=== PATIENT | female | born 1960 | race Caucasian/White ===

== ENCOUNTER 2017-08-20 18:11 | Observation (INO) | payer BC ==
[2017-08-20] MEDS ORDERED: Acetaminophen TAB* 325 MG PO ONE (20:14)
[2017-08-20 20:24] LABS: Hematocrit 36 % (35-47); Hemoglobin 11.9 g/dl (12.0-16.0); Mean Corpuscular HGB Conc 33 g/dl (31-36); Mean Corpuscular Hemoglobin 28 pg (27-31); Mean Corpuscular Volume 86 fL (80-97); Mean Platelet Volume 8 um3 (7.4-10.4); Red Blood Count 4.21 10^6/ul (4.0-5.4); Red Cell Distribution Width 14 % (10.5-15); White Blood Count 14.9 10^3/ul (3.5-10.8)
[2017-08-20 20:40] LABS: Albumin 3.9 g/dL (3.2-5.2); BUN/Creatinine Ratio 12.5 (8-20); Calcium 9.2 mg/dL (8.6-10.3); EGFR Non-African American 83.2 (>60); Globulin 3.2 g/dL (2-4); Potassium 4.2 mmol/L (3.5-5.0); Total Bilirubin 0.3 mg/dL (0.2-1.0); Total Protein 7.1 g/dL (6.4-8.9)
[2017-08-20 20:42] LABS: Troponin I 0.03 ng/mL (<0.04)
--- NOTE | 2017-08-20 20:59 | RAD ---
Indication: Headache, hypertension. Comparison: No relevant prior exams available on the [facility] for comparison. Technique: Noncontrast CT vertex of skull through foramen magnum. Report: The sulci, ventricles, and basal cisterns are normal for age. White matter white matter differentiation is preserved without evidence for edema. No intra or extra axial hemorrhage, mass, or fluid collection detected. Unremarkable visualized orbital contents. Unremarkable calvarium and skull base. Unremarkable scalp. The visualized paranasal sinuses and mastoid air spaces are clear. IMPRESSION: Negative unenhanced head CT.
[2017-08-20] MEDS ORDERED: Morphine INJ* 4 MG/ML 1 ML CARPUJECT IV ONE (21:05)
[2017-08-20 21:14] LABS: T4 8.75 mcg/mL (6.09-12.23)
[2017-08-20 21:18] LABS: TSH (Thyroid Stimulating Horm) 0.87 mcIU/mL (0.34-5.60)
[2017-08-20 21:19] LABS: Urine Bacteria Absent (Absent); Urine Bilirubin Negative (Negative); Urine Glucose Negative (Negative); Urine Nitrite Negative (Negative)
[2017-08-20] MEDS ORDERED: oxyCODONE TAB* 5 MG TAB PO PRN (22:31)
[2017-08-21] MEDS: oxyCODONE SR TAB(*) 15 MG TAB.SR PO SCH ×3 (00:32→13:04)
--- NOTE | 2017-08-21 01:56 | HP ---
CC: JERALD Tolbert * HISTORY AND PHYSICAL: DATE OF ADMISSION: 08/20/17 PRIMARY CARE PROVIDER: JERALD Tolbert CHIEF COMPLAINT: Chest pain. HISTORY OF PRESENT ILLNESS: Ms. Douglass is a 56-year-old female who has a history of chronic pain, fibromyalgia, and tobacco abuse who presented to the emergency room at [facility] with complaints of chest pain. The patient states that she was cleaning her carpet this morning and went to use the vacuum when she felt both arms to be very heavy. She then developed a heaviness across her upper chest. She states that it intensified over a couple of minutes, then went away when she stopped being active. The patient had no associated shortness of breath, nausea, or diaphoresis. The patient does state that she had an episode similar to his over the summer; however, without the chest pain, but did not seek attention at that time. In addition to the complaints of chest pain, she also complains of headache. She states that she used to get headaches like this; however, not recently. PAST MEDICAL HISTORY: 1. Fibromyalgia. 2. GERD. PAST SURGICAL HISTORY: 1. x3. 2. Hysterectomy. 3. Removal of retained stitches. MEDICATIONS: 1. Premarin 0.625 mg p.o. daily. 2. OxyContin 15 mg p.o. t.i.d. 3. Aspirin 325 mg p.o. daily. 4. Zegerid one cap p.o. daily p.r.n. GERD. ALLERGIES: IBUPROFEN and SUMATRIPTAN. FAMILY HISTORY: Mom is living. She is 80. She has a pacemaker. She is unaware of any other medical conditions. Dad is and his health history is unknown. SOCIAL HISTORY: The patient has been a smoker since the age of 11 or 12, smoking approximately 1 pack per day. She does not drink alcohol. She worked as a homemaker and as a skin specialist. She is . She has 3 children. She indicates her , Rosalio, is her healthcare proxy. REVIEW OF SYSTEMS: A complete 11-system review of systems is obtained. Pertinent positives and negatives are as per HPI and otherwise negative. PHYSICAL EXAMINATION GENERAL: The patient is a well-developed middle-aged female, lying in the stretcher, in no acute distress. VITAL SIGNS: Blood pressure 96/79, pulse 83, respirations 19, temp 98.8, O2 sat 95% on room air. HEENT: Pupils are equal. They are round. Extraocular muscles are intact. Oropharynx is clear. Oral mucosa is moist. There is no submandibular, cervical , or supraclavicular adenopathy. Thyroid is not enlarged. No thyroid nodules are noted. PULMONARY: Lungs are clear to auscultation bilaterally. CARDIAC: Normal S1, S2. Regular rate and rhythm. I do not appreciate any murmurs. There is no lower extremity edema. ABDOMEN: Bowel sounds present. Abdomen is soft, nontender, nondistended. MUSCULOSKELETAL: There is no cyanosis or clubbing of the digits. There is full active range of motion of all 4 extremities. NEUROLOGIC: Cranial nerves II through XII are grossly intact. Sensation is intact to light touch throughout. Strength is 5/5 and symmetric in both upper and lower extremities bilaterally. SKIN: Warm and dry. There are no rashes. PSYCH: The patient is alert. She is oriented x3. Affect appears appropriate. LABORATORY DATA: WBC 14.9, hemoglobin 11.9, hematocrit 36, platelets 433,000. INR 0.90. Sodium 137, potassium 4.2, chloride 106, CO2 24, BUN 9, creatinine 0.72, glucose 111, lactic acid 2.0, calcium 9.2, magnesium 2.0. Bilirubin 0.3, AST 13, ALT 11, alk phos 102. CPK is 66. CK-MB 2.7. Troponin 0.03. Albumin 3.9. TSH 0.87. Urinalysis reveals clear urine with a specific gravity of 1.009, 1+ blood, and hyaline casts. EKG reveals normal sinus rhythm with Q-waves in the inferior leads. No acute ST -T wave abnormalities are noted. CT brain, negative. Unenhanced CT head. ASSESSMENT AND PLAN: Ms. Douglass is a 56-year-old female who has a history of tobacco abuse and presents to the emergency room with complaints of chest pain and while at [facility] was found to have markedly elevated blood pressure with systolic greater than 200 and a slightly elevated troponin of 0.04 at [facility]. 1. Chest pain. I am concerned that this could represent cardiac chest pain. The patient was active at the time of the onset of chest pain. She believes that she had a stress test sometime in the distant past; however, she is not completely clear on this. The plan will be to admit the patient under observation status for one more troponin followed by an exercise nuclear stress test tomorrow. 2. Hypertension. The patient states her blood pressure has fluctuated quite a bit over the last several readings. She does note at home, her blood pressure was high in the 180s at the time of her episode of chest pain. Her blood pressure will be monitored and if she appears to have hypertension, she should be initiated on therapy. She states that her primary has been going back and forth on whether or not to start a medication at this point. Currently, the patient's blood pressure is soft at 96/79; however, she did just receive some morphine for her headache. 3. Headache. The patient believes this is related to stress and nerves because of the chest pain. For now, we will continue p.r.n. Tylenol and her standing OxyContin. I will add p.r.n. oxycodone as well. 4. Gastroesophageal reflux disease. I will continue omeprazole. 5. DVT prophylaxis. According to the Adult Thrombosis Prophylaxis Risk Factor Assessment Guide, the patient has a total risk factor score of 2 making her moderate risk. Ambulation will be utilized as DVT prophylaxis. 7. Code status is full and again, the patient indicates that her is her healthcare proxy. TIME SPENT: 65 minutes were spent admitting this patient. [id number] #: [id number] MTDD
--- NOTE | 2017-08-21 03:46 | ED ---
Jaymie Soler Alfonso, scribed for Lissette Cervantes MD on 08/20/17 at 1959 . HPI Chest Pain - HPI Summary HPI Summary: This patient is a 56 year old F BIBA from [facility] to [facility] accompanied by 5 family members with a chief complaint of diffuse aching CP worse since 1100 today. Pt had an elevated troponin 0.04 at [facility] so was transferred for further eval. She had similar symptoms a few months ago and just blew it off. The CP is currently resolved and she is feeling good. The patient rates the pain 9/10 in severity. Symptoms aggravated by nothing. Symptoms alleviated by treatment MILLER DISTILLERY. Patient given Lopressor, Nitro, ASA, and 5 mg Morphine x2 by EMS MILLER DISTILLERY. Patient reports bilateral UE weakness, headache (9/ 10 pain severity), and anxiety. Patient denies abdominal pain, N/V, calf pain, calf swelling, SOB, and changes in vision. - History of Current Complaint Chief Complaint: EDChestPainROMI Time Seen by Provider: 08/20/17 19:47 Hx Obtained From: Patient, Medical Records Onset/Duration: Started Hours Ago, Atraumatic, Resolved, Worse Since - 1100 today Timing: Constant Initial Severity: Moderate Current Severity: Severe Pain Intensity: 9 Pain Scale Used: 0-10 Numeric Chest Pain Location: Diffuse Chest Pain Radiates: Yes Chest Pain Radiates To:: Arm Character: Dull/Aching Aggravating Factor(s): Nothing Alleviating Factor(s): EMS Tx Associated Signs and Symptoms: Positive: Chest Pain, Anxiety, Headaches, Other: - bilateral UE weakness, headache (9/10 pain severity), and anxiety. Patient denies abdominal pain, N/V, calf pain, calf swelling, SOB, and changes in vision.. Negative: Vision Changes, Shortness of Breath, Nausea, Calf Pain/ Swelling, Vomiting - Risk Factors Pulmonary Embolism Risk Factors: Smoking TAD Risk Factors: Smoking - Allergy/Home Medications Allergies/Adverse Reactions: Allergies Allergy/AdvReac Type Severity Reaction Status Date / Time Ibuprofen [From Motrin] Allergy Swelling Verified 08/20/17 18:21 Of Face,Lips,& Throat Sumatriptan [From Imitrex] Allergy Tachycardia Verified 08/20/17 18:21 Home Medications: Home Medications Aspirin 325 MG TAB* 325 mg PO DAILY 08/20/17 [History Confirmed 08/20/17] Oxycontin 15 mg PO TID 08/20/17 [History Confirmed 08/20/17] Premarin TAB* 0.625 mg PO DAILY 08/20/17 [History Confirmed 08/20/17] Zegerid 20-1100 mg 20 mg PO QAM 08/20/17 [History Confirmed 08/21/17] PMH/Surg Hx/FS Hx/Imm Hx Previously Healthy: No GI History: Reports: Hx Gastroesophageal Reflux Disease Musculoskeletal History: Reports: Hx Fibromyalgia Opthamlomology History: Denies: Hx Legally Blind EENT History: Denies: Hx Deafness - Surgical History Surgery Procedure, Year, and Place: hysterectomy, Infectious Disease History: No Infectious Disease History: Denies: Traveled Outside the [place] in Last 30 Days - Family History Known Family History: Positive: Cardiac Disease - Mother - Social History Lives: With Family Alcohol Use: None Hx Substance Use: No Substance Use Type: Reports: None Hx Tobacco Use: Yes Smoking Status (MU): Heavy Every Day Tobacco Smoker Review of Systems Negative: Fever Positive: Other - Negative changes in vision. Positive: Chest Pain Negative: Shortness Of Breath Negative: Abdominal Pain, Vomiting, Nausea Positive: Other - Negative calf pain and calf swelling Positive: Headache, Weakness - bilateral UE Positive: Anxious All Other Systems Reviewed And Are Negative: Yes Physical Exam Triage Information Reviewed: Yes Vital Signs On Initial Exam: Initial Vitals Temp Pulse Resp BP Pulse Ox 98.8 F 79 17 164/131 96 08/20/17 18:19 08/20/17 18:19 08/20/17 18:19 08/20/17 18:19 08/20/17 18:19 Vital Signs Reviewed: Yes Appearance: Positive: Well-Appearing, Well-Nourished, Pain Distress Skin: Positive: Warm, Skin Color Reflects Adequate Perfusion Head/Face: Positive: Normal Head/Face Inspection Eyes: Positive: Conjunctiva Clear ENT: Positive: Normal ENT inspection Neck: Positive: Supple, Nontender, No Lymphadenopathy Respiratory/Lung Sounds: Positive: Clear to Auscultation, Breath Sounds Present , Other - no respiratory distress Cardiovascular: Positive: RRR, Pulses are Symmetrical in both Upper and Lower Extremities, Other - Brisk capillary refill. Negative: Murmur, Leg Edema Left, Leg Edema Right Abdomen Description: Positive: Nontender, No Organomegaly, Soft. Negative: Distended, Guarding, Peritoneal Signs, Pulsatile Mass Bowel Sounds: Positive: Present Musculoskeletal: Positive: Strength/ROM Intact, Other - Negative calf tenderness.. Negative: Edema Left, Edema Right Neurological: Positive: Sensory/Motor Intact - 5/5, Alert, Oriented to Person Place, Time, CN Intact II-III - II-XII, Facial Symmetry, Speech Normal Psychiatric: Positive: Normal - Jesse Coma Scale Best Eye Response: 4 - Spontaneous Best Motor Response: 6 - Obeys Commands Best Verbal Response: 5 - Oriented Coma Scale Total: 15 Diagnostics - Vital Signs Vital Signs Temp Pulse Resp BP Pulse Ox 08/20/17 19:00 76 16 128/95 96 08/20/17 18:30 76 20 153/66 96 08/20/17 18:24 80 18 94 08/20/17 18:21 164/131 08/20/17 18:19 98.8 F 79 17 164/131 96 - Laboratory Lab Results: Lab Results 08/20/17 08/20/17 08/20/17 Range/Units 20:17 20:17 20:17 WBC 14.9 H (3.5-10.8) 10^3/ul RBC 4.21 (4.0-5.4) 10^6/ul Hgb 11.9 L (12.0-16.0) g/dl Hct 36 (35-47) % MCV 86 (80-97) fL MCH 28 (27-31) pg MCHC 33 (31-36) g/dl RDW 14 (10.5-15) % Plt Count 433 (150-450) 10^3/ul MPV 8 (7.4-10.4) um3 Neut % (Auto) 68.6 (38-83) % Lymph % (Auto) 24.0 L (25-47) % Furnas % (Auto) 5.4 (1-9) % Eos % (Auto) 0.7 (0-6) % Baso % (Auto) 1.3 (0-2) % Absolute Neuts (auto) 10.2 H (1.5-7.7) 10^3/ul Absolute Lymphs (auto) 3.6 (1.0-4.8) 10^3/ul Absolute Monos (auto) 0.8 (0-0.8) 10^3/ul Absolute Eos (auto) 0.1 (0-0.6) 10^3/ul Absolute Basos (auto) 0.2 (0-0.2) 10^3/ul Absolute Nucleated RBC 0.01 10^3/ul Nucleated RBC % 0 INR (Anticoag Therapy) 0.90 (0.89-1.11) APTT 24.5 L (26.0-36.3) seconds Sodium 137 (133-145) mmol/L Potassium 4.2 (3.5-5.0) mmol/L Chloride 106 (101-111) mmol/L Carbon Dioxide 24 (22-32) mmol/L Anion Gap 7 (2-11) mmol/L BUN 9 (6-24) mg/dL Creatinine 0.72 (0.51-0.95) mg/dL Est GFR ( Amer) 107.0 (>60) Est GFR (Non-Af Amer) 83.2 (>60) BUN/Creatinine Ratio 12.5 (8-20) Glucose 111 H (70-100) mg/dL Lactic Acid (0.5-2.0) mmol/L Calcium 9.2 (8.6-10.3) mg/dL Magnesium 2.0 (1.9-2.7) mg/dL Total Bilirubin 0.30 (0.2-1.0) mg/dL AST 13 (13-39) U/L ALT 11 (7-52) U/L Alkaline Phosphatase 102 (34-104) U/L Total Creatine Kinase 66 (10-223) U/L CK-MB (CK-2) 2.7 (0.6-6.3) ng/mL Troponin I 0.03 (<0.04) ng/mL Total Protein 7.1 (6.4-8.9) g/dL Albumin 3.9 (3.2-5.2) g/dL Globulin 3.2 (2-4) g/dL Albumin/Globulin Ratio 1.2 (1-3) TSH 0.87 (0.34-5.60) mcIU/mL Thyroxine (T4) 8.75 (6.09-12.23) mcg/mL Urine Color Urine Appearance Urine pH (5-9) Ur Specific Dowling (1.010-1.030) Urine Protein (Negative) Urine Ketones (Negative) Urine Blood (Negative) Urine Nitrate (Negative) Urine Bilirubin (Negative) Urine Urobilinogen (Negative) Ur Leukocyte Esterase (Negative) Urine WBC (Auto) (Absent) Urine RBC (Auto) (Absent) Ur Squamous Epith Cells (Absent) Urine Bacteria (Absent) Hyaline Casts (Absent) Urine Glucose (Negative) 08/20/17 08/20/17 Range/Units 20:17 21:00 WBC (3.5-10.8) 10^3/ul RBC (4.0-5.4) 10^6/ul Hgb (12.0-16.0) g/dl Hct (35-47) % MCV (80-97) fL MCH (27-31) pg MCHC (31-36) g/dl RDW (10.5-15) % Plt Count (150-450) 10^3/ul MPV (7.4-10.4) um3 Neut % (Auto) (38-83) % Lymph % (Auto) (25-47) % Furnas % (Auto) (1-9) % Eos % (Auto) (0-6) % Baso % (Auto) (0-2) % Absolute Neuts (auto) (1.5-7.7) 10^3/ul Absolute Lymphs (auto) (1.0-4.8) 10^3/ul Absolute Monos (auto) (0-0.8) 10^3/ul Absolute Eos (auto) (0-0.6) 10^3/ul Absolute Basos (auto) (0-0.2) 10^3/ul Absolute Nucleated RBC 10^3/ul Nucleated RBC % INR (Anticoag Therapy) (0.89-1.11) APTT (26.0-36.3) seconds Sodium (133-145) mmol/L Potassium (3.5-5.0) mmol/L Chloride (101-111) mmol/L Carbon Dioxide (22-32) mmol/L Anion Gap (2-11) mmol/L BUN (6-24) mg/dL Creatinine (0.51-0.95) mg/dL Est GFR ( Amer) (>60) Est GFR (Non-Af Amer) (>60) BUN/Creatinine Ratio (8-20) Glucose (70-100) mg/dL Lactic Acid 2.0 (0.5-2.0) mmol/L Calcium (8.6-10.3) mg/dL Magnesium (1.9-2.7) mg/dL Total Bilirubin (0.2-1.0) mg/dL AST (13-39) U/L ALT (7-52) U/L Alkaline Phosphatase (34-104) U/L Total Creatine Kinase (10-223) U/L CK-MB (CK-2) (0.6-6.3) ng/mL Troponin I (<0.04) ng/mL Total Protein (6.4-8.9) g/dL Albumin (3.2-5.2) g/dL Globulin (2-4) g/dL Albumin/Globulin Ratio (1-3) TSH (0.34-5.60) mcIU/mL Thyroxine (T4) (6.09-12.23) mcg/mL Urine Color Yellow Urine Appearance Clear Urine pH 6.0 (5-9) Ur Specific Dowling 1.009 L (1.010-1.030) Urine Protein Negative (Negative) Urine Ketones Negative (Negative) Urine Blood 1+ H (Negative) Urine Nitrate Negative (Negative) Urine Bilirubin Negative (Negative) Urine Urobilinogen Negative (Negative) Ur Leukocyte Esterase Negative (Negative) Urine WBC (Auto) Trace(0-5/hpf) (Absent) Urine RBC (Auto) Trace(0-2/hpf) (Absent) Ur Squamous Epith Cells Present H (Absent) Urine Bacteria Absent (Absent) Hyaline Casts Present H (Absent) Urine Glucose Negative (Negative) Result Diagrams: 08/20/17 20:17 08/20/17 20:17 Lab Statement: Any lab studies that have been ordered have been reviewed, and results considered in the medical decision making process. - CT Brain CT Interpretation Completed By: Radiologist - Negative unenhanced head CT. ED physician has reviewed this radiology report and agrees. - EKG 2056 Cardiac Rate: NL EKG Rhythm: Sinus Rhythm - BPM 77 ST Segment: Non-Specific EKG Interpretation: Nml AV/IV conduction time, QTC, & axis. 1 PVC. Q wave in II , III, and AVF. EKG Comparison: No Significant Change - to 1600 EKG from [facility] Re-Evaluation - Re-Evaluation First Eval Re-Evaluation Time: 21:01 Change: Unchanged Comment: Reviewed lab results and plan for admission. She and her family understand and agree. Her headache still persists after Tylenol at this time. Will order morphine. Chest Pain Course/Dx - Course Assessment/Plan: This patient is a 56 year old F BIBA from [facility] to [facility] accompanied by 5 family members with a chief complaint of diffuse aching CP worse since 1100 today. She had similar symptoms a few months ago and just blew it off. The CP is currently resolved and she is feeling good. The patient rates the pain 9/10 in severity. Symptoms aggravated by nothing. Symptoms alleviated by treatment MILLER DISTILLERY. Patient given Lopressor, Nitro, ASA, and 5 mg Morphine x2 by EMS MILLER DISTILLERY. Patient reports bilateral UE weakness, headache (9/ 10 pain severity), and anxiety. Patient denies abdominal pain, N/V, calf pain, calf swelling, SOB, and changes in vision. An EKG reveals Sinus Rhythm at 77 BPM. Nml AV/IV conduction time, QTC, & axis. 1 PVC. Q wave in II, III, and AVF. Nonspecific ST and T wave changes. No changes compared to [address] [facility] Brain reveals, per radiologist, Negative unenhanced head CT. ED physician has reviewed this radiology report and agrees. Patients medications reviewed this visit. In the ED course the patient was given Tylenol and Morphine. Chest Xray was done at [facility], was unremarkable, and was not repeated. Report from [facility] reviewed and MD agrees with report. Consulted Dr. Douglass (hospitalist) who agrees to admit. Patient will be admitted with follow up from Dr. Douglass. The patient and family are agreeable with this plan. - Chest Pain Differential Diagnosis/HQI/PQRI: Acute SD, ACS, Angina, GI Disease - Diagnoses Provider Diagnoses: Chest pain, Cephalgia - Provider Notifications Discussed Care Of Patient With: Regla Douglass Time Discussed With Above Provider: 20:03 Instructed by Provider To: Admit As Observation - Consulted Dr. Douglass ( hospitalist) who agrees to admit. - Critical Care Time Critical Care Time: 30-74 min Discharge - Discharge Plan Condition: Stable Disposition: ADMITTED TO [facility] documentation as recorded by the Jaymie johnson Alfonso accurately reflects the service I personally performed and the decisions made by Billy garcia Barbara J, MD.
[2017-08-21] MEDS ORDERED: Omeprazole CAP* 20 MG PO SCH (06:00)
[2017-08-21] MEDS ORDERED: Aspirin TAB* 325 MG PO SCH (09:00)
[2017-08-21 12:04] VITALS: BP 183/80
--- NOTE | 2017-08-21 12:41 | RAD ---
INDICATION: Chest pain COMPARISON: None TECHNIQUE: A single day SPECT protocol was utilized. Rest images were acquired following the intravenous injection of 10.98 millicuries of technetium 99m tetrofosmin. Exercise stress images were acquired following the intravenous administration of 25.4 millicuries of technetium 99m tetrofosmin. CT attenuation correction could not be obtained due to claustrophobia. The patient was exercised to a peak heart rate of 140 which is 86% of age predicted maximum of age predicted maximum. FINDINGS: There are no defects of the stress-induced or fixed nature. The cardiac chamber size is normal. There are no wall motion abnormalities. The ejection fraction is calculated at 75 percent during stress. IMPRESSION: NEGATIVE EXAMINATION. ASSESSMENT: LOW-RISK Based on imaging criteria from ACC/AHA 2002 Guideline Update for the Management of Patients With Chronic Stable Angina Table 23. Noninvasive Risk Stratification.
--- NOTE | 2017-08-22 05:41 | DS ---
CC: Davey Zhu PA-C * DISCHARGE SUMMARY: DATE OF ADMISSION: 08/20/17 DATE OF DISCHARGE: 08/21/17 PRIMARY CARE PROVIDER: Davey Zhu PA-C DISCHARGE DIAGNOSIS: Chest pain with low probability cardiac stress test, documented on 08/21/17. SECONDARY DIAGNOSES: 1. History of hysterectomy. 2. History of fibromyalgia. 3. History of gastroesophageal reflux disease. MEDICATIONS AT DISCHARGE: Unchanged from admission and those include: 1. Premarin 0.625 mg daily. 2. OxyContin 15 mg 3 times a day. 3. Aspirin 325 mg daily. 4. Zegerid one cap daily p.r.n. GERD. LABORATORY DATA AND STUDIES PERFORMED DURING THE HOSPITAL STAY: Included troponin throughout the patient's hospital stay was unremarkable at 0.03. Subsequently, the patient's cardiac stress test showed no defects of stress induced or fixed nature. Negative evaluation with low risk. The EF was noted to be 75% during stress. PHYSICAL EXAMINATION AT THE TIME OF DISCHARGE: Blood pressure of 158/65, heart rate of 79 and regular, respiratory rate 18, oxygen saturation 94% on room air, temperature 97.8. General: This is a very pleasant 56-year-old female, who is in no acute distress. Alert, awake, and oriented x3. HEENT: Head atraumatic, normocephalic. Eyes: Pupils equal, round, and reactive to light and accommodation. Oropharynx clear. Mucosa moist. Neck: Supple. No JVD. No bruits bilaterally. Cardiovascular: Regular rate and rhythm. No murmur. Respiratory: Clear to auscultation bilaterally. Abdomen: Soft, nontender. Bowel sounds are present in all 4 quadrants. Extremities: There is no edema. Pulses +2 bilaterally. There is no clubbing or cyanosis. Neuro Evaluation: Speech clear. Cranial nerves II through XII grossly intact. Motor strength is 5 /5 bilaterally. DISCHARGE INSTRUCTIONS: At discharge, the patient was recommended to follow up with her primary care provider in approximately 5 to 7 days. At discharge, the patient is recommended strongly not to smoke and counseling was provided to the patient for approximately 5 minutes at discharge. Please note that this is a short summary of the patient's hospital stay. Please refer to further medical records for details. [id number]/[facility] #: [id number] [facility]
== END 2017-08-21 15:15 | disposition home or self-care (01) ==
LOC: ED 18:11 → MEDTELE 22:27
PROVIDERS: ADMIT Hospitalist; ATTEND Internal Medicine
DX: R07.9 Chest pain, unspecified (principal); I10 Essential (primary) hypertension; R51 Headache; M79.7 Fibromyalgia; K21.9 Gastro-esophageal reflux disease without esophagitis; I49.3 Ventricular premature depolarization; F17.210 Nicotine dependence, cigarettes, uncomplicated; Z79.899 Other long term (current) drug therapy; Z79.82 Long term (current) use of aspirin
CPT/HCPCS: 36415; 70450; 78452; 80053; 81003; 81015; 82550; 82553; 83605; 83735; 84436; 84443; 84484; 85025; 85610; 85730; 93005; 93017; 96374; 99291; A9270-GY; A9502; G0378; J2270